=== PATIENT | female | born 1960 | race Caucasian/White ===

== ENCOUNTER 2018-04-05 12:40 | Emergency (ER) | payer OTHER ==
[2018-04-05 12:51] VITALS: BP 132/86
--- NOTE | 2018-04-05 12:59 | EDPHY ---
H & P Stated Complaint: PT. states sudden onset this am(11) rt post leg pain.sharp pain,ecchymosis Time Seen by Provider: 04/05/18 12:52 HPI/ROS: CHIEF COMPLAINT: Bruising right calf HISTORY OF PRESENT ILLNESS: The patient is a healthy 58-year-old female who comes to the emergency department complaining of a bruise to her right lateral calf. She states that she felt a pain today while vacuuming. She did not bump it or fall or twist her leg. She looked at the area and did not see any abnormalities however about 10 min later began to have some bruising. Over the next hour it is now slightly more bruised and slightly reddish in color. It is tender. She presented to her primary doctor who could not fit her in. She then went to the urgent care who recommended she come to the ER for an ultrasound to rule out DVT. She does not have any swelling in her foot or ankle. No calf pain. Ambulating without difficulty. No fever. No nausea vomiting. Severity: Mild Modifying factors: Gradually worsening with time REVIEW OF SYSTEMS: Constitutional: denies: chills, fever, recent illness, recent injury EENTM: denies: blurred vision, double vision, nose congestion Respiratory: denies: cough, shortness of breath Cardiac: denies: chest pain, irregular heart rate, lightheadedness, palpitations Gastrointestinal/Abdominal: denies: abdominal pain, diarrhea, nausea, vomiting, blood streaked stools Genitourinary: denies: dysuria, frequency, hematuria, pain Musculoskeletal: denies: joint pain, muscle pain Skin: See HPI Neurological: denies: headache, numbness, paresthesia, tingling, dizziness, weakness Hematologic/Lymphatic: denies: blood clots, easy bleeding, easy bruising Immunologic/allergic: denies: HIV/AIDS, transplant 10 systems reviewed and negative except as noted EXAM: GENERAL: Well-appearing, well-nourished and in no acute distress. HEAD: Atraumatic, normocephalic. EYES: Pupils equal round and reactive to light, extraocular movements intact, sclera anicteric, conjunctiva are normal. ENT: TMs normal, nares patent, oropharynx clear without exudates. Moist mucous membranes. NECK: Normal range of motion, supple without lymphadenopathy or JVD. LUNGS: Breath sounds clear to auscultation bilaterally and equal. No wheezes rales or rhonchi. HEART: Regular rate and rhythm without murmurs, rubs or gallops. ABDOMEN: Soft, nontender, normoactive bowel sounds. No guarding, no rebound. No masses appreciated. BACK: No CVA tenderness, no spinal tenderness, step-offs or deformities EXTREMITIES: See below Normal range of motion, no pitting or edema. No clubbing or cyanosis. NEUROLOGICAL: Cranial nerves II through XII grossly intact. Normal speech, normal gait. 5/5 strength, normal movement in all extremities, normal sensation , normal reflexes PSYCH: Normal mood, normal affect. SKIN: Patient has a quarter-sized erythematous area to her right lateral calf. It is surrounded by faint bruising and has punctate bruising throughout. It is slightly firm but does not feel fluctuant or like an abscess. Does not appear to involve her knee joint. Negative Homans. Source: Patient Exam Limitations: No limitations - Personal History Current Tetanus Diphtheria and Acellular Pertussis (TDAP): Unsure - Medical/Surgical History Hx Asthma: No Hx Chronic Respiratory Disease: No Hx Diabetes: No Hx Cardiac Disease: No Hx Renal Disease: No Hx Cirrhosis: No Hx Alcoholism: No Hx HIV/AIDS: No Hx Splenectomy or Spleen Trauma: No Other PMH: MEd hx-thyroid. Surg-none - Family History Significant Family History: No pertinent family hx - Social History Smoking Status: Former smoker Alcohol Use: None Constitutional: Initial Vital Signs Temperature (C) 37.0 C 04/05/18 12:45 Heart Rate 77 04/05/18 12:45 Respiratory Rate 16 04/05/18 12:45 Blood Pressure 132/86 H 04/05/18 12:45 O2 Sat (%) 94 04/05/18 12:45 O2 Delivery Mode Room Air Allergies/Adverse Reactions: No Known Allergies Allergy (Verified 04/05/18 12:45) Home Medications: Medication Instructions Recorded Levothyroxine 04/05/18 Medical Decision Making ED Course/Re-evaluation: The patient has an unusual bruise/lesion. To me it appears most consistent with an insect bite or sting. She was however inside with pants on in the winter when it occurred. She did feel immediate pain. We discussed the signs and symptoms of black bite. Clinically I am not suspicious for DVT. I did offer to perform ultrasound to rule that out especially since this what the urgent care recommended. She however declined and states that she also does not think that it is a blood clot. We engaged in shared decision making and ultimately agreed to give it 24-48 hour of observation. Hopefully by then it will declare itself as a bruise or sting or abscess verses DVT or cellulitis or vasculitis. There is no history of trauma and does not appear consistent with a traumatic injury. She does not remember bumping up against anything or hitting her leg. Differential Diagnosis: Partial list of the Differential diagnosis considered include but were not limited to; insect bite, sting, abscess, cellulitis and although unlikely based on the history and physical exam, I also considered DVT, tendinopathy, fracture, Mchugh cyst , oncologic. I discussed these differential diagnoses and the plan with the patient as well as the usual and expected course. The patient understands that the diagnosis is provisional and that in medicine we are not always correct and that further workup is often warranted. Usual and customary warnings were given. All of the patient's questions were answered. The patient was instructed to return to the emergency department should the symptoms at all worsen or return, otherwise to followup with the physician as we discussed. Departure - Departure Disposition: Home, Routine, Self-Care Clinical Impression: Contusion Qualifiers: Encounter type: initial encounter Contusion area: lower leg Laterality: right Qualified Code(s): S80.11XA - Contusion of right lower leg, initial encounter Condition: Fair Instructions: Contusion in Adults (ED) Additional Instructions: Return in 24-48 hours if your symptoms are worsening as we discussed. Referrals: Beverly Colin MD [Primary Care Provider] - As per Instructions
== END 2018-04-05 13:15 | disposition home or self-care (01) ==
LOC: CED 12:40
DX: S80.11XA Contusion of right lower leg, initial encounter (principal)
CPT/HCPCS: 99282-ER